=== PATIENT | male | born 1955 | race Caucasian/White ===

== ENCOUNTER 2018-11-28 08:35 | Outpatient (CLI) | payer OTHER ==
--- NOTE | 2018-11-28 09:18 | CT ---
CT CHEST FOR PULMONARY LUNG SCAN: HISTORY: Low dose screening. COMPARISON: None. FINDINGS: Lung screen specific (lung-RADS): Benign. There are no suspicious pulmonary nodules. Potentially significant incidentals (lung-RADS category S): Negative. No new or unknown potentially significant incidental findings. Pulmonary incidentals: Mild paraseptal emphysema and central lobular emphysema. Scattered 2-3 mm no nspecific pulmonary nodules. No pneumothorax or effusion. Other incidentals: Limited evaluation of the upper abdomen is unremarkable. No adenopathy. No thoracic spine compression fracture. No displaced rib fracture. IMPRESSION: 1. Lung-RADS category 2-Benign. Recommend follow-up screening chest CT in one year. 2. Lung-RADS category S-Negative. No new or unknown potentially significant incidental findings req uiring urgent additional evaluation. POS: CET
== END 2018-11-28 08:36 | disposition home or self-care (01) ==
LOC: CT 08:35
DX: F17.200 Nicotine dependence, unspecified, uncomplicated (principal)
CPT/HCPCS: G0297